=== PATIENT | male | born 1965 | race Caucasian/White ===

== ENCOUNTER 2018-03-11 18:04 | Emergency (ER) | payer OTHER ==
[~2018-03-11] VITALS: Ht 172.7 cm; Wt 88.5 kg
[2018-03-11] MEDS ORDERED: [UNRECOGNIZED DRUG - OTHER] (18:22)
== END 2018-03-11 21:18 | disposition home or self-care (01) ==
LOC: ER 18:04
DX: R42 Dizziness and giddiness (principal)

== ENCOUNTER 2018-09-03 14:25 | Outpatient (CLI) | payer OTHER ==
[~2018-09-03 14:25] MED LIST: [UNRECOGNIZED DRUG - OTHER]
== END 2018-09-03 14:30 | disposition home or self-care (01) ==
LOC: LAB 14:25
DX: I10 Essential (primary) hypertension (principal); E03.8 Other specified hypothyroidism; E78.49 Other hyperlipidemia